=== PATIENT | male | born 1990 | race Native Hawaiian/Other Pacific Islander ===

== ENCOUNTER 2018-03-03 22:50 | Emergency (ER) | payer SELFPAY ==
[2018-03-03 22:59] VITALS: BP 145/100
[2018-03-03] MEDS ORDERED: GLUCAGON 1 MG/ML VIAL IM STA (23:14)
--- NOTE | 2018-03-03 23:19 | ED Physician Documentation ---
PD HPI HEENT FB - Chief complaint Chief Complaint: Heent - History obtained from History obtained from: Patient - History of Present Illness Timing - onset: How many hours ago (5.5) Pain level max: 0 Pain level now: 0 Location: Esophagus Associated symptoms: No: Fever, Congestion, Rhinorrhea, Trismus, Facial swelling, Headache, Cough Recently seen: Not recently seen - Additional information Additional information: 27-year-old male with history of asthma here with complain of a piece of steak stuck in his esophagus at about 5:30 PM today. He says he does not cut his meat small and would just eat his food down. He claimed that this had happened before and it usually comes down on its own if he just waits it out. However his sister scared him and so he decided to come to the emergency room. Patient claims he tried to drink soda but he would spit it out. Claims he has a little cold recently. Review of Systems Ten Systems: 10 systems reviewed and negative Constitutional: denies: Fever, Chills, Myalgias Nose: reports: Rhinorrhea / runny nose Throat: denies: Sore throat Cardiac: denies: Chest pain / pressure Respiratory: denies: Dyspnea, Cough GI: reports: Vomiting. denies: Abdominal Pain, Nausea PD PAST MEDICAL HISTORY - Past Medical History Respiratory: Asthma - Past Surgical History Past Surgical History: Yes Ortho: Other - Present Medications Home Medications: Ambulatory Orders Medication Instructions Recorded Confirmed Albuterol Sulfate [Proventil Hfa 2 puffs INH Q12H PRN 06/25/15 06/25/15 Inhaler] - Allergies Allergies/Adverse Reactions: Allergies Allergy/AdvReac Type Severity Reaction Status Date / Time Penicillins Allergy Unknown Verified 06/25/15 12:59 steroids AdvReac Anxiety Uncoded 06/25/15 12:59 - Social History Does the pt smoke?: No Smoking Status: Never smoker Does the pt drink ETOH?: No Does the pt have substance abuse?: No PD ED PE NORMAL - Vitals Vital signs reviewed: Yes - General General: Alert and oriented X 3, No acute distress, Well developed/nourished - HEENT HEENT: Moist mucous membranes, Pharynx benign - Neck Neck: Supple, no meningeal sign - Cardiac Cardiac: RRR, No murmur - Respiratory Respiratory: Clear bilaterally - Abdomen Abdomen: Normal bowel sounds, Soft, Non tender, Non distended - Back Back: No CVA TTP - Derm Derm: Normal color, Warm and dry - Extremities Extremities: No deformity - Neuro Neuro: Alert and oriented X 3, Normal speech - Psych Psych: Normal mood, Normal affect Results - Vitals Vitals: Vital Signs - 24 hr 03/03/18 22:54 Heart Rate 83 Respiratory 18 Rate Blood Pressure 145/100 H O2 Saturation 99 Oxygen O2 Source Room air PD MEDICAL DECISION MAKING - ED course Complexity details: re-evaluated patient, considered differential (Foreign body sensation versus steak stuck in his esophagus., Esophageal stricture), d/w patient ED course: 2352 patient awake alert in no acute distress. He tolerated drinking a glass of water. He says he is ready to go. He is requesting for apple juice because he is hungry. Instructed for him to not eat in solids tonight. Tomorrow he can be on clear liquids and on a very soft diet. He was instructed to make sure he cuts his food into small pieces. He was instructed to follow-up with his primary doctor and get a referral to a delicatessen manager who can do his EGD to determine whether he has pathology in his esophagus. Patient expressed understanding of instructions. Departure - Departure Disposition: 01 Home, Self Care Clinical Impression: Foreign body in esophagus Qualifiers: Encounter type: initial encounter Qualified Code(s): T18.108A - Unspecified foreign body in esophagus causing other injury, initial encounter Condition: Stable Instructions: ED Foreign Body Esophageal Rslv Comments: Clear liquids tonight. Tomorrow you may advance to very soft diet such as pudding. Make sure you cut your food into small pieces and chew properly before swallowing your food. Call your primary doctor tomorrow and get a referral to a GI doctor for outpatient endoscopy to determine if you have esophageal stricture or ring is in other pathology that is causing you to have this problem. If worse return to the emergency room.
[2018-03-03] MEDS ORDERED: WATER FOR INJECTION,STERILE 10 ML ONE (23:31)
== END 2018-03-04 00:26 | disposition home or self-care (01) ==
LOC: ED 22:50
DX: T18.108A Unspecified foreign body in esophagus causing other injury, initial encounter (principal)
CPT/HCPCS: 96372; 99283

== ENCOUNTER 2021-03-01 09:22 | Day surgery (SDC) | payer SELFPAY ==
--- NOTE | 2021-03-01 09:34 | ED Physician Documentation ---
PD HPI NVD - Stated complaint Stated Complaint: FB IN THROAT - Chief complaint Chief Complaint: General - History obtained from History obtained from: Patient - History of Present Illness Timing - onset: Last night (about midnight) Timing - duration: Hours (9) Timing - details: Abrupt onset, Still present (was eating sausage and noted it get stuck. Tried to gag himself to vomit, and also tried seltzer water for carbonation. No improvement. Has continued with spitting saliva without food products overnight.) Associated symptoms: No: Fever, Abdominal pain, Near syncope / syncope Improved by: No: Vomiting Worsened by: Eating Similar symptoms before: Diagnosis (presumed achalasia with similar episode 3 years ago seen in ER and cleared with IV glucagon. Interim has had occasional episodes of food stuck, but resolves over minutes up to about 20 minutes longest at times.) Recently seen: Not recently seen Review of Systems Constitutional: denies: Fever Nose: denies: Rhinorrhea / runny nose, Congestion Throat: denies: Sore throat Respiratory: denies: Cough GI: denies: Abdominal Pain Neurologic: denies: Generalized weakness, Near syncope PD PAST MEDICAL HISTORY - Past Medical History Cardiovascular: None Respiratory: Asthma GI: Other (no noted reflux/heartburn. Has brief episodes of food stuck over the past 3 years. ) - Past Surgical History Past Surgical History: Yes Ortho: Other - Present Medications Home Medications: Ambulatory Orders Medication Instructions Recorded Confirmed Albuterol Sulfate [Proventil Hfa 2 puffs INH Q12H PRN 06/25/15 03/01/21 Inhaler] - Allergies Allergies/Adverse Reactions: Allergies Allergy/AdvReac Type Severity Reaction Status Date / Time Penicillins Allergy Unknown Verified 03/01/21 09:29 steroids AdvReac Anxiety Uncoded 06/25/15 12:59 - Social History Does the pt smoke?: No Smoking Status: Never smoker Does the pt drink ETOH?: No Does the pt have substance abuse?: No PD ED PE NORMAL - Vitals Vital signs reviewed: Yes - General General: Alert and oriented X 3, Well developed/nourished, Other (spitting saliva clear periodically every few minutes. Normal voice and breathing. ) - HEENT HEENT: Pharynx benign - Neck Neck: Supple, no meningeal sign, No adenopathy - Cardiac Cardiac: RRR, No murmur - Respiratory Respiratory: Clear bilaterally - Abdomen Abdomen: Soft, Non tender, Non distended - Derm Derm: Normal color, Warm and dry - Neuro Neuro: Alert and oriented X 3, No motor deficit, Normal speech Results - Vitals Vitals: Vital Signs - 24 hr 03/01/21 03/01/21 03/01/21 09:29 10:43 12:08 Temperature 36.9 C Heart Rate 92 90 110 H Respiratory 18 16 16 Rate Blood Pressure 124/81 H 121/80 111/74 O2 Saturation 98 97 95 Oxygen O2 Source Room air - Labs Labs: Laboratory Tests 03/01/21 03/01/21 03/01/21 10:05 10:05 11:20 WBC 6.0 RBC 5.49 Hgb 16.0 Hct 47.7 MCV 86.9 MCH 29.1 MCHC 33.5 RDW 11.9 L Plt Count 244 MPV 8.9 Neut # (Auto) 3.5 Lymph # (Auto) 1.6 [place] # (Auto) 0.5 Eos # (Auto) 0.5 Baso # (Auto) 0.0 Absolute Nucleated RBC 0.00 Nucleated RBC % 0.0 Sodium 142 Potassium 4.0 Chloride 103 Carbon Dioxide 30 Anion Gap 9.0 BUN 11 Creatinine 0.8 Estimated GFR (MDRD) 113 Glucose 102 H Calcium 9.4 Total Bilirubin 1.7 H AST 19 ALT 22 Alkaline Phosphatase 48 Total Protein 7.6 Albumin 5.1 Globulin 2.5 Albumin/Globulin Ratio 2.0 Lipase 43 Nasal Adenovirus (PCR) NOT DETECTED Nasal B. parapertussis DNA (PCR) NOT DETECTED Nasal Coronavir 229E PCR NOT DETECTED Nasal Coronavir HKU1 PCR NOT DETECTED Nasal Coronavir NL63 PCR NOT DETECTED Nasal Coronavir OC43 PCR NOT DETECTED Nasal Enterovir/Rhinovir PCR NOT DETECTED Nasal Influenza B PCR NOT DETECTED Nasal Influenza A PCR NOT DETECTED Nasal Parainfluen 1 PCR NOT DETECTED Nasal Parainfluen 2 PCR NOT DETECTED Nasal Parainfluen 3 PCR NOT DETECTED Nasal Parainfluen 4 PCR NOT DETECTED Nasal RSV (PCR) NOT DETECTED Nasal B.pertussis DNA PCR NOT DETECTED Nasal C.pneumoniae (PCR) NOT DETECTED Demetri Human Metapneumo PCR NOT DETECTED Nasal M.pneumoniae (PCR) NOT DETECTED Nasal SARS-CoV-2 (PCR) NOT DETECTED PD MEDICAL DECISION MAKING - ED course Complexity details: re-evaluated patient (Patient was given IV fluids and antiemetics. Attempts were made at an esophageal relaxation with glucagon and nitroglycerin and carbonation. Unsuccessful at allowing the food impaction to move. He is still vomiting.), considered differential (food impaction lower esophagus. ), d/w patient, d/w qa consultant (Surgery for EGD. ) Departure - Departure Disposition: ED Transfer to [facility] Clinical Impression: Foreign body in esophagus Qualifiers: Encounter type: initial encounter Qualified Code(s): T18.108A - Unspecified foreign body in esophagus causing other injury, initial encounter Condition: Stable Record reviewed to determine appropriate education?: Yes
[2021-03-01] MEDS ORDERED: SODIUM CHLORIDE 0.9% 1,000 ML IV STA ×2 (09:45→14:58)
[2021-03-01] MEDS ORDERED: GLUCAGON 5 MG in DEXTROSE 5% 45 ML IV STA (09:45)
[2021-03-01 10:11] LABS: BASOPHILS % (AUTO) 0.7 %; EOSINOPHILS # (AUTO) 0.5 10^3/uL (0.0-0.7); EOSINOPHILS % (AUTO) 7.5 %; HCT - HEMATOCRIT 47.7 % (42.0-52.0); LYMPHOCYTES # (AUTO) 1.6 10^3/uL (1.5-3.5); LYMPHOCYTES % (AUTO) 26.1 %; MEAN CORPUSCULAR HEMOGLOBIN 29.1 pg (27.0-31.0); MEAN CORPUSCULAR HGB CONC 33.5 g/dL (32.0-36.0); MEAN CORPUSCULAR VOLUME 86.9 fL (80.0-94.0); MEAN PLATELET VOLUME 8.9 fL (7.4-11.4); MONOCYTES # (AUTO) 0.5 10^3/uL (0.0-1.0); MONOCYTES % (AUTO) 8.1 %; NEUTROPHILS # (AUTO) 3.5 10^3/uL (1.5-6.6); NEUTROPHILS % (AUTO) 57.4 %; PLT - PLATELET COUNT 244 10^3/uL (130-450); RED BLOOD COUNT 5.49 10^6/uL (4.70-6.10); RED CELL DISTRIBUTION WIDTH 11.9 % (12.0-15.0)
[2021-03-01 10:24] LABS: ALBUMIN 5.1 g/dL (3.2-5.5); BILIRUBIN,TOTAL 1.7 mg/dL (0.2-1.0); CALCIUM 9.4 mg/dL (8.5-10.3); CREATININE 0.8 mg/dL (0.6-1.2); TOTAL PROTEIN 7.6 g/dL (6.7-8.2)
[2021-03-01] MEDS ORDERED: NITROGLYCERIN SL 0.4 MG TABLET SL STA (10:34)
[2021-03-01] MEDS ORDERED: KETOROLAC 15 MG/ML VIAL IVP STA (10:34)
[2021-03-01] MEDS ORDERED: ONDANSETRON 4 MG/2 ML VIAL IVP STA (10:54)
[2021-03-01 12:24] LABS: B. PARAPERTUSSIS- RESP PCR PAN NOT DETECTED; B. PERTUSSIS- RESP PCR PANEL NOT DETECTED; C. PNEUMONIAE- RESP PCR PANEL NOT DETECTED; CORONAVIRUS 229E-RESP PCR NOT DETECTED; CORONAVIRUS HKU1-RESP PCR NOT DETECTED; CORONAVIRUS NL63-RESP PCR NOT DETECTED; CORONAVIRUS OC43-RESP PCR NOT DETECTED; HUMAN METAPNEUMOVIRUS NOT DETECTED; INFLUENZA A- RESP PCR PANEL NOT DETECTED; INFLUENZA B - RESP PCR PANEL NOT DETECTED; M. PNEUMONIAE- RESP PCR PANEL NOT DETECTED; PARAINFLUENZA VIRUS 1 NOT DETECTED; PARAINFLUENZA VIRUS 2 NOT DETECTED; PARAINFLUENZA VIRUS 3 NOT DETECTED; PARAINFLUENZA VIRUS 4 NOT DETECTED; RHINOVIRUS/ENTEROVIRUS NOT DETECTED; RSV- RESP PCR PANEL NOT DETECTED; SARS-CoV-2 -RESP PCR PANEL NOT DETECTED
--- NOTE | 2021-03-01 12:41 | HISTORY & PHYSICAL EXAMINATION ---
Chief Complaint - Chief Complaint Chief Complaint: Food stuck in esohagus History of Present Illness - Admitted From Admitted From:: ED - History Obtained From Records Reviewed: yes History obtained from: pt Exam Limitations: none - History of Present Illness HPI Comment/Other: Mild troubles swallowing for years. He has to be careful with rice and meat. Slowly getting worse. He has not seen GI or had work before. He states otherwise health is good. History - Past Medical History Cardiovascular: reports: None Respiratory: reports: Asthma GI: reports: Other (no noted reflux/heartburn. Has brief episodes of food stuck over the past 3 years. ) MRSA Hx?: No - Past Surgical History Ortho: reports: Other Meds/Allgy - Home Medications Home Medications: Ambulatory Orders Medication Instructions Recorded Confirmed Albuterol Sulfate [Proventil Hfa 2 puffs INH Q12H PRN 06/25/15 03/01/21 Inhaler] - Allergies Allergies/Adverse Reactions: Allergies Allergy/AdvReac Type Severity Reaction Status Date / Time Penicillins Allergy Unknown Verified 03/01/21 09:29 steroids AdvReac Anxiety Uncoded 06/25/15 12:59 Review of Systems - Other Findings Other Findings: 10 pt ros as above otherwise unremarkable Exam - Vital Signs Reviewed Vital Signs: Yes Vital Signs: Vital Signs x48h Temp Pulse Resp BP Pulse Ox 03/01/21 12:08 110 H 16 111/74 95 03/01/21 10:43 90 16 121/80 97 03/01/21 09:29 36.9 C 92 18 124/81 H 98 - Physical Exam General Appearance: positive: No acute distress, Alert Eyes Bilateral: positive: PERRL, EOMI ENT: positive: No signs of dehydration Neck: positive: Thyroid nml Respiratory: positive: No respiratory distress, Breath sounds nml Cardiovascular: positive: Regular rate & rhythm Abdomen: positive: Non-tender, No distention Neurologic/Psychiatric: positive: Oriented x3 Conclusion/Plan - Problem List (1) Esophageal obstruction due to food impaction Conclusion/Plan: No improvement with medical treatment/ management. Plan EGD. parq held and consent obtained - Lab Results Fish Bones: 03/01/21 10:05 03/01/21 10:05
[2021-03-01] MEDS ORDERED: NALOXONE 0.4 MG/ML VIAL IVP PRN (15:00)
[2021-03-01] MEDS ORDERED: METOCLOPRAMIDE 10 MG/2 ML VIAL IVP PRN (15:00)
[2021-03-01] MEDS ORDERED: HYDROmorphone 0.5 MG/0.5 ML SYRINGE IVP PRN (15:00)
[2021-03-01] MEDS ORDERED: ONDANSETRON 4 MG/2 ML VIAL IVP PRN (15:00)
[2021-03-01] MEDS ORDERED: MORPHINE 2 MG/ML CARPUJECT IVP PRN (15:00)
[2021-03-01] MEDS ORDERED: ePHEDrine 50 MG/ML VIAL IVP PRN (15:00)
[2021-03-01] MEDS ORDERED: LACTATED RINGERS 1,000 ML IV SCH (15:00)
[2021-03-01] MEDS ORDERED: ATROPINE ABBOJECT 1 MG/10 ML SYRINGE IVP PRN (15:00)
[2021-03-01] MEDS ORDERED: fentaNYL 100 MCG/2 ML VIAL IVP PRN (15:00)
--- NOTE | 2021-03-01 15:00 | ANESTHESIA ---
Pre-Anesthesia VS, & Labs - Diagnosis food bolus in esophagus - Procedure EGD, treatment of food bolus Vital Signs: Temp Pulse Resp BP Pulse Ox 36.9 C 110 H 16 111/74 95 03/01/21 09:29 03/01/21 12:08 03/01/21 12:08 03/01/21 12:08 03/01/21 12:08 Height: 5 ft 10 in Weight (kg): 77.111 kg Body Mass Index: 24.3 BMI Classification: Healthy weight - NPO >8 hours - Lab Results Current Lab Results: Laboratory Tests 03/01/21 10:05: Sodium 142, Potassium 4.0, Chloride 103, Carbon Dioxide 30, Anion Gap 9.0, BUN 11, Creatinine 0.8, Estimated GFR (MDRD) 113, Glucose 102 H, Calcium 9.4, Total Bilirubin 1.7 H, AST 19, ALT 22, Alkaline Phosphatase 48, Total Protein 7.6, Albumin 5.1, Globulin 2.5, Albumin/Globulin Ratio 2.0, Lipase 43 03/01/21 10:05: WBC 6.0, RBC 5.49, Hgb 16.0, Hct 47.7, MCV 86.9, MCH 29.1, MCHC 33.5, RDW 11.9 L, Plt Count 244, MPV 8.9, Neut # (Auto) 3.5, Lymph # (Auto) 1.6, [place] # (Auto) 0.5, Eos # (Auto) 0.5, Baso # (Auto) 0.0, Absolute Nucleated RBC 0.00, Nucleated RBC % 0.0 Fish Bones: 03/01/21 10:05 03/01/21 10:05 Home Medications and Allergies Active Medications Sodium Chloride (Normal Saline 0.9%) 1,000 mls @ 500 mls/hr IV .Q2H STA Stop: 03/01/21 16:57 Albuterol Sulfate [Proventil Hfa Inhaler] 2 puffs INH Q12H PRN 06/25/15 Allergies/Adverse Reactions: Allergies Allergy/AdvReac Type Severity Reaction Status Date / Time Penicillins Allergy Unknown Verified 03/01/21 09:29 steroids AdvReac Anxiety Uncoded 06/25/15 12:59 Anes History & Medical History - Anesthetic History Anesthesia Complications: reports: No previous complications - Medical History Cardiovascular: reports: None Pulmonary: reports: Asthma Gastrointestinal: reports: Other (no noted reflux/heartburn. Has brief episodes of food stuck over the past 3 years. ) Smoking Status: Never smoker History of Cancer?: No - Surgical History Orthopedic: reports: Other Exam General: Alert, Oriented x3 Dental: WNL Mallampati classification: II Respiratory: Lungs clear Cardiovascular: Regular rate Plan Anesthesia Type: General Consent for Procedure(s) Verified and Reviewed: Yes Code Status: Attempt Resuscitation ASA classification: 2-Mild systemic disease Is this case an emergency?: Yes
[2021-03-01] MEDS ORDERED: fentaNYL 100 MCG/2 ML VIAL ONE (15:08)
[2021-03-01] MEDS ORDERED: LIDOCAINE-MPF 2% 5 ML VIAL ONE (15:40)
[2021-03-01] MEDS ORDERED: ONDANSETRON 4 MG/2 ML VIAL ONE (15:40)
[2021-03-01] MEDS ORDERED: DEXAMETHASONE 4 MG/ML VIAL ONE (15:40)
[2021-03-01] MEDS ORDERED: PROPOFOL 200 MG/20 ML VIAL IVP ONE (15:40)
[2021-03-01] MEDS ORDERED: ROCURONIUM 50 MG/5 ML VIAL ONE (15:40)
[2021-03-01] MEDS ORDERED: LACTATED RINGERS 1,000 ML IV ONE (15:57)
--- NOTE | 2021-03-01 16:30 | ANESTHESIA POST OP EVALUATION ---
Anesthesia Post Eval - Post Anesthesia Eval Vitals: Last Vital Signs Temp 36.8 C 03/01/21 16:10 Pulse 103 H 03/01/21 16:10 Resp 16 03/01/21 16:10 BP 121/85 H 03/01/21 16:10 Pulse Ox 100 03/01/21 16:10 CV Function Including HR & BP: Stable Pain Control: Satisfactory Nausea & Vomiting: Negative Mental Status: Baseline Respiratory Status: Airway Patent Hydration Status: Satisfactory Anesthesia Complications: None
[2021-03-01 17:10] VITALS: BP 119/80
== END 2021-03-01 18:10 | disposition home or self-care (01) ==
LOC: ED 09:22 → SDS 12:30 → MS3 16:20 → SDS 18:10
PROVIDERS: ATTEND Surgery
PROC: 0DB28ZX Excision of Middle Esophagus, Via Natural or Artificial Opening Endoscopic, Diagnostic (ICD-10-PCS; 2021-03-01)
PROC: 0DC58ZZ Extirpation of Matter from Esophagus, Via Natural or Artificial Opening Endoscopic (ICD-10-PCS; principal; 2021-03-01 15:00)
DX: T18.128A Food in esophagus causing other injury, initial encounter (principal); X58.XXXA Exposure to other specified factors, initial encounter; Z20.822 Contact with and (suspected) exposure to COVID-19
CPT/HCPCS: 0202U; 36415; 43239; 43247; 80053; 83690; 85025; 96365; 96375; 99284; 99285; A9270; J7120

== ENCOUNTER 2021-03-26 14:00 | Emergency (ER) | payer SELFPAY ==
--- NOTE | 2021-03-26 14:23 | ED Physician Documentation ---
PD HPI CHEST PAIN - Stated complaint Stated Complaint: CHEST PX - Chief complaint Chief Complaint: Cardiac - History obtained from History obtained from: Patient - History of Present Illness Timing - onset: Today Timing - onset during: Light activity Timing - duration: Seconds (1-2) Timing - details: Abrupt onset Pain level max: 2 Pain level now: 0 Quality: Aching, Sharp, Pain Location: Left chest Radiation: No: Jaw, Neck, Back, Abdominal, Left upper extremity, Right upper extremity - Additional information Additional information: 30-year-old male presents to the emergency department with chest pain earlier today. The chest pain felt sharp, lasted for 1 to 2 seconds at a time and was intermittent over the span of 5 to 10 minutes. He no longer feels symptomatic. No history of heart disease. Does have a history of albuterol and had some chest tightness earlier that improved with albuterol. He also worked out yesterday for the first time in "[employer] time". Does not smoke. Does not vape. Denies any drug use. No family history of young cardiac disease. Nothing makes it better or worse Review of Systems Ten Systems: 10 systems reviewed and negative Constitutional: denies: Fever, Chills Ears: denies: Ear pain Nose: denies: Rhinorrhea / runny nose, Congestion Throat: denies: Sore throat Cardiac: reports: Chest pain / pressure, Palpitations Respiratory: denies: Dyspnea, Cough GI: denies: Abdominal Pain, Nausea, Vomiting, Diarrhea Skin: denies: Rash Musculoskeletal: denies: Back pain Neurologic: denies: Headache, Head injury PD PAST MEDICAL HISTORY - Past Medical History Cardiovascular: None Respiratory: Asthma GI: Other (no noted reflux/heartburn. Has brief episodes of food stuck over the past 3 years. ) - Past Surgical History Past Surgical History: Yes Ortho: Other - Present Medications Home Medications: Ambulatory Orders Medication Instructions Recorded Confirmed Albuterol Sulfate [Proventil Hfa 2 puffs INH Q12H PRN 06/25/15 03/01/21 Inhaler] - Allergies Allergies/Adverse Reactions: Allergies Allergy/AdvReac Type Severity Reaction Status Date / Time Penicillins Allergy Unknown Verified 03/26/21 14:17 steroids AdvReac Anxiety Uncoded 03/26/21 14:17 - Social History Does the pt smoke?: No Smoking Status: Never smoker Does the pt drink ETOH?: No Does the pt have substance abuse?: No PD ED PE NORMAL - Vitals Vital signs reviewed: Yes - General General: Alert and oriented X 3, No acute distress, Well developed/nourished - HEENT HEENT: PERRL, Moist mucous membranes - Neck Neck: Supple, no meningeal sign - Cardiac Cardiac: RRR, Strong equal pulses - Respiratory Respiratory: No respiratory distress, Clear bilaterally - Abdomen Abdomen: Soft, Non tender, Non distended - Derm Derm: Warm and dry - Extremities Extremities: No edema, No calf tenderness / cord - Neuro Neuro: Alert and oriented X 3 - Psych Psych: Normal mood, Normal affect Results - Vitals Vitals: Vital Signs - 24 hr 03/26/21 03/26/21 03/26/21 14:17 15:43 16:18 Temperature 36.7 C Heart Rate 57 L 70 70 Respiratory 18 18 14 Rate Blood Pressure 116/61 128/73 120/74 O2 Saturation 98 100 100 Oxygen O2 Source Room air - EKG (time done) 1414 Rate: Rate (enter#) (65) Rhythm: NSR [place]: Normal Intervals: Normal [place] QRS: Normal Ischemia: Normal ST segments - Labs Labs: Laboratory Tests 03/26/21 03/26/21 03/26/21 14:37 14:37 14:37 WBC 6.5 RBC 5.46 Hgb 16.0 Hct 47.2 MCV 86.4 MCH 29.3 MCHC 33.9 RDW 12.5 Plt Count 242 MPV 8.7 Neut # (Auto) 4.1 Lymph # (Auto) 1.5 [place] # (Auto) 0.4 Eos # (Auto) 0.5 Baso # (Auto) 0.1 Absolute Nucleated RBC 0.00 Nucleated RBC % 0.0 Sodium 137 Potassium 3.8 Chloride 98 L Carbon Dioxide 29 Anion Gap 10.0 BUN 8 Creatinine 0.6 Estimated GFR (MDRD) 157 Glucose 97 Calcium 9.2 Total Bilirubin 1.8 H AST 52 H ALT 22 Alkaline Phosphatase 46 Troponin I High Sens 2.6 Total Protein 7.4 Albumin 4.8 Globulin 2.6 Albumin/Globulin Ratio 1.8 Lipase 37 - Rads (name of study) Chest x-ray Radiology: Final report received, EMP read contemporaneously, See rad report (No acute abnormality) PD MEDICAL DECISION MAKING - ED course Complexity details: reviewed results, re-evaluated patient, considered differential (No ST elevation ND, no aortic dissection, no PE, no tension pneumothorax, no aortic aneurysm), d/w patient ED course: Asymptomatic in the emergency department. No arrhythmia on telemetry. No acute abnormality on laboratory testing, EKG, chest x-ray. Possible PVCs? We will have him follow-up with his doctor for further care. Patient counseled regarding signs and symptoms for which I believe and urgent re-evaluation would be necessary. Patient with good understanding of and agreement to plan and is comfortable going home at this time This document was made in part using voice recognition software. While efforts are made to proofread this document, sound alike and grammatical errors may occur. Departure - Departure Disposition: 01 Home, Self Care Clinical Impression: Palpitations, Atypical chest pain Condition: Good Instructions: Premature Ventricular Contract About, ED Chest Pain Atypical Unkn Cause, ED Palpitations Follow-Up: your,doctor in 1 week [Other] Comments: The cause of your symptoms is unclear today. Please follow up with your doctor for further care. They may want to put a heart monitor on you to see if you are having PVC's. Please return if you worsen. Your x-ray, EKG and laboratory testing are normal today. Discharge Date/Time: 03/26/21 16:19
[2021-03-26 14:44] LABS: BASOPHILS # (AUTO) 0.1 10^3/uL (0.0-0.1); BASOPHILS % (AUTO) 0.8 %; EOSINOPHILS # (AUTO) 0.5 10^3/uL (0.0-0.7); EOSINOPHILS % (AUTO) 7.3 %; HCT - HEMATOCRIT 47.2 % (42.0-52.0); LYMPHOCYTES # (AUTO) 1.5 10^3/uL (1.5-3.5); LYMPHOCYTES % (AUTO) 23.1 %; MEAN CORPUSCULAR HEMOGLOBIN 29.3 pg (27.0-31.0); MEAN CORPUSCULAR HGB CONC 33.9 g/dL (32.0-36.0); MEAN CORPUSCULAR VOLUME 86.4 fL (80.0-94.0); MEAN PLATELET VOLUME 8.7 fL (7.4-11.4); MONOCYTES # (AUTO) 0.4 10^3/uL (0.0-1.0); MONOCYTES % (AUTO) 5.7 %; NEUTROPHILS # (AUTO) 4.1 10^3/uL (1.5-6.6); NEUTROPHILS % (AUTO) 62.9 %; PLT - PLATELET COUNT 242 10^3/uL (130-450); RED BLOOD COUNT 5.46 10^6/uL (4.70-6.10); RED CELL DISTRIBUTION WIDTH 12.5 % (12.0-15.0); WHITE BLOOD COUNT 6.5 x10^3/uL (4.8-10.8)
--- NOTE | 2021-03-26 14:56 | XRAY Report ---
PROCEDURE: Chest 1 View X-Ray INDICATIONS: Chest pain TECHNIQUE: One view of the chest was acquired. COMPARISON: None FINDINGS: Surgical changes and devices: None. Lungs and pleura: No pleural effusions or pneumothorax. Lungs are clear. Mediastinum: Mediastinal contours appear normal. Heart size is normal. Bones and chest wall: No suspicious bony lesions. Overlying soft tissues appear unremarkable. IMPRESSION: No evidence acute pulmonary process. Reviewed by: Javi Kang MD on 03/26/2021 2:54 PM [facility] Approved by: Javi Kang MD on 03/26/2021 2:54 PM [facility] Station ID: [id number]
[2021-03-26 15:00] LABS: ALBUMIN 4.8 g/dL (3.2-5.5); ALBUMIN/GLOBULIN RATIO 1.8 (1.0-2.2); BILIRUBIN,TOTAL 1.8 mg/dL (0.2-1.0); CALCIUM 9.2 mg/dL (8.5-10.3); CREATININE 0.6 mg/dL (0.6-1.2); POTASSIUM 3.8 mmol/L (3.5-5.0); TOTAL PROTEIN 7.4 g/dL (6.7-8.2)
[2021-03-26 16:19] VITALS: BP 120/74
== END 2021-03-26 16:19 | disposition home or self-care (01) ==
LOC: ED 14:00
DX: R07.89 Other chest pain (principal); R00.2 Palpitations
CPT/HCPCS: 36415; 80053; 83690; 84484; 85025; 93005; 99282; 99284

== ENCOUNTER 2023-07-12 22:13 | Emergency (ER) | payer SELFPAY ==
--- NOTE | 2023-07-12 22:52 | ED Physician Documentation ---
PD HPI DYSPNEA - Stated complaint Stated Complaint: SOA/CHEST PX - Chief complaint Chief Complaint: General - History obtained from History obtained from: Patient - History of Present Illness Timing - onset: How many days ago (10) Timing - onset during: Rest Timing - duration: Days (10) Timing - details: Gradual onset, Still present, Waxing and waning Inciting event(s): URI Improved by: Inhaler/neb, Rest Worsened by: Exertion, Allergens Associated symptoms: Fever, Wheezing, Chest pain / discomfort, Diaphoresis. No: Cough, Hemoptysis, Palpitations, Bilateral edema, Unilateral edema Similar symptoms before: Diagnosis (uri and asthma) Recently seen: Not recently seen - Additional information Additional information: Jay Macias is a 33-year-old male who has a history of asthma and he has usually taken longer than his family members to recover from a cold. He recalls getting a cold about 10 days ago and that he felt that he was getting better from this and then he has developed a headache mostly on the right side and some dizziness as well as some pain in his anterior chest. He did not feel that he got great relief with the use of his inhaler. He has had this happen to him previously with respiratory illness.He has a sensitivity to steroid inhaler and he does not use them. Review of Systems Constitutional: reports: Myalgias, Fatigue, Sweats. denies: Fever Eyes: denies: Decreased vision Ears: reports: Ear pain Nose: reports: Congestion. denies: Rhinorrhea / runny nose Throat: reports: Sore throat (resolved) Cardiac: reports: Chest pain / pressure (anterior) Respiratory: reports: Dyspnea, Wheezing. denies: Cough GI: denies: Vomiting, Diarrhea PD PAST MEDICAL HISTORY - Past Medical History Past Medical History: Yes Cardiovascular: None Respiratory: Asthma GI: Other - Past Surgical History Past Surgical History: Yes Ortho: Other - Present Medications Home Medications: Ambulatory Orders Medication Instructions Recorded Confirmed Albuterol Sulfate [Proventil Hfa 2 puffs INH Q12H PRN 06/25/15 03/01/21 Inhaler] Azithromycin [Zithromax] 250 mg PO DAILY #6 tablet 07/13/23 - Allergies Allergies/Adverse Reactions: Allergies Allergy/AdvReac Type Severity Reaction Status Date / Time Penicillins Allergy Unknown Verified 07/12/23 22:17 steroids AdvReac Anxiety Uncoded 07/12/23 22:17 - Social History Does the pt smoke?: No Smoking Status: Never smoker Does the pt drink ETOH?: No Does the pt have substance abuse?: No - Immunizations Immunizations are current?: No - POLST Patient has POLST: No PD ED PE NORMAL - Vitals Vital signs reviewed: Yes (hypertensive ) - General General: Alert and oriented X 3, No acute distress, Well developed/nourished - HEENT HEENT: Atraumatic, PERRL, EOMI, Pharynx benign, Other (Both TM's are centrally erythematous the landmarks on the right are distorted) - Neck Neck: Supple, no meningeal sign, No bony TTP - Cardiac Cardiac: RRR, No murmur - Respiratory Respiratory: No respiratory distress, Other (diminished breath sounds in bases. mild chest wall tenderness to parasternal area. ) - Abdomen Abdomen: Soft, Non tender - Back Back: No CVA TTP, No spinal TTP - Derm Derm: Normal color, Warm and dry, No rash - Extremities Extremities: No deformity, No edema - Neuro Neuro: Alert and oriented X 3, receiving coordinator 2-12 intact, No motor deficit, No sensory deficit, Normal speech Eye Opening: Spontaneous Motor: Obeys Commands Verbal: Oriented GCS Score: 15 - Psych Psych: Normal mood, Normal affect Results - Vitals Vitals: Vital Signs - 24 hr 07/12/23 07/13/23 22:18 00:37 Temperature 36.9 C Heart Rate 76 85 Respiratory 18 18 Rate Blood Pressure 134/79 H 125/77 O2 Saturation 100 98 Oxygen O2 Source Room air - Rads (name of study) chest Relevant Findings:: Prelim report reviewed (Impression: No acute cardiopulmonary process.), EMP independent interpretation of test PD Medical Decision Making - ED course Complexity details: considered differential, d/w patient, d/w family ED course: 33-year-old Jay Macias has tested negative for COVID 5 times in this past week and he has had a URI which appears to have resolved and then he has developed a persistence of asthma symptoms chest wall tenderness and right ear pain with headache. He has resolved his cough. On exam he does have evidence of otitis. He is administered a dose of dexamethasone and we will place him on a course of zithromax. Departure - Departure Disposition: 01 Home, Self Care Clinical Impression: Otitis media Qualifiers: Otitis media type: suppurative Chronicity: acute Laterality: right Recurrence: non-recurrent Spontaneous tympanic membrane rupture: without spontaneous rupture Qualified Code(s): H66.001 - Acute suppurative otitis media without spontaneous rupture of ear drum, right ear Reactive airway disease with acute exacerbation Qualifiers: Asthma severity: mild Asthma persistence: persistent Qualified Code(s): J45.31 - Mild persistent asthma with (acute) exacerbation Condition: Stable Instructions: ED Reactive Airway Disease, ED Otitis Media Acute Adult Prescriptions: Azithromycin [Zithromax] 250 mg PO DAILY #6 tablet Comments: Jay, today it looks like you have some reactive airway disease as it has caused some discomfort to your chest and this is likely a result of some inflammation from a viral infection. There is evidence of a bacterial infection in your right middle ear and this appears mild. I have E scribed some antibiotic for your use to [facility] [place]. Our expectations with treatment are improvement in your chest wall discomfort and in your breathing over the next 1 to 3 days. Forms: PCP List Discharge Date/Time: 07/13/23 00:38
[2023-07-13] MEDS: DEXAMETHASONE 10 MG/ML VIAL PO STA (00:15)
[2023-07-13] MEDS: CHERRY SYRUP 10 ML UDC PO ONE (00:15)
--- NOTE | 2023-07-13 00:34 | XRAY Report ---
PROCEDURE: Chest 2V INDICATIONS: soa TECHNIQUE: 2 views of the chest were acquired. COMPARISON: Chest radiograph 03/26/2021. FINDINGS: Surgical changes and devices: None. Lungs and pleura: No pleural effusions or pneumothorax. Lungs are clear. Mediastinum: Mediastinal contours appear normal. Heart size is normal. Bones and chest wall: No suspicious bony lesions. Overlying soft tissues appear unremarkable. IMPRESSION: No acute cardiopulmonary process. Reviewed by: Heidi William MD, PhD on 07/13/2023 12:32 AM PDT Approved by: Heidi William MD, PhD on 07/13/2023 12:32 AM PDT Station ID: [id number]
[2023-07-13] MEDS: diphenhydrAMINE 25 MG CAPSULE PO STA (00:37)
[2023-07-13 00:41] VITALS: BP 125/77; O2SAT 98
== END 2023-07-13 00:38 | disposition home or self-care (01) ==
LOC: ED 22:13
DX: H66.001 Acute suppurative otitis media without spontaneous rupture of ear drum, right ear (principal); J45.31 Mild persistent asthma with (acute) exacerbation
CPT/HCPCS: 71046; 99283; 99284; A9270